=== PATIENT | female | born 1980 | race Caucasian/White ===

== ENCOUNTER 2018-10-21 14:11 | Emergency (ER) | payer MEDICARE ==
[~2018-10-21] VITALS: Ht 162.6 cm; Wt 56.2 kg
[~2018-10-21 14:11] MED LIST: ACETAMINOPHEN-1 EAC1 PO; AMOXICILLIN500 M1 PO; ATIVAN1 M1 PO; ATIVAN1 MG; ATIVAN1 MG PO; AUGMENTIN; DIFLUCAN150 MG PO; FISH OIL 1,0001 EAC5 PO; FLAGYL500 MG PO; IBUPROFEN; IBUPROFEN 200200 M1 PO; KEFLEX500 MG PO; NORCO 5-325 TA1 EACH PO; OLANZAPINE2.5 MG PO; PRENATAL; TRILEPTAL150 MG; TRILEPTAL600 MG PO; ULTRAM 50MG TAB50 MG PO; [UNRECOGNIZED DRUG - OTHER]
[2018-10-21 14:30] VITALS: BP 125/80
== END 2018-10-21 14:32 | disposition home or self-care (01) ==
LOC: M.ERS 14:11
DX: S00.552A Superficial foreign body of oral cavity, initial encounter (principal); F32.9 Major depressive disorder, single episode, unspecified; F41.9 Anxiety disorder, unspecified; G89.29 Other chronic pain; F17.210 Nicotine dependence, cigarettes, uncomplicated; Z88.2 Allergy status to sulfonamides; Z88.6 Allergy status to analgesic agent; Z88.8 Allergy status to other drugs, medicaments and biological substances; X58.XXXA Exposure to other specified factors, initial encounter; Y93.89 Activity, other specified; Y92.89 Other specified places as the place of occurrence of the external cause; Y99.8 Other external cause status